=== PATIENT | female | born 1960 | race Caucasian/White ===

== ENCOUNTER 2021-03-05 07:17 | Outpatient (CLI) | payer BC ==
[2021-03-05 14:36] LABS: BASOPHILS # (AUTO) 0.1 10^3/uL (0.0-0.1); EOSINOPHILS # (AUTO) 0.4 10^3/uL (0.0-0.7); EOSINOPHILS % (AUTO) 6.6 %; HGB - HEMOGLOBIN 13.5 g/dL (12.0-16.0); LYMPHOCYTES # (AUTO) 2.6 10^3/uL (1.5-3.5); MEAN CORPUSCULAR HEMOGLOBIN 28.6 pg (27.0-31.0); MEAN CORPUSCULAR HGB CONC 31.4 g/dL (32.0-36.0); MEAN CORPUSCULAR VOLUME 91.1 fL (81.0-99.0); MEAN PLATELET VOLUME 9.7 fL (7.9-10.8); MONOCYTES # (AUTO) 0.5 10^3/uL (0.0-1.0); MONOCYTES % (AUTO) 8.1 %; NEUTROPHILS # (AUTO) 2.6 10^3/uL (1.5-6.6); PLT - PLATELET COUNT 270 10^3/uL (130-450); RED BLOOD COUNT 4.72 10^6/uL (4.20-5.40); RED CELL DISTRIBUTION WIDTH 13.5 % (12.0-15.0); WHITE BLOOD COUNT 6.2 x10^3/uL (4.8-10.8)
[2021-03-05 15:08] LABS: ALBUMIN 4.1 g/dL (3.2-5.5); ALBUMIN/GLOBULIN RATIO 1.3 (1.0-2.2); ALKALINE PHOSPHATASE 50 IU/L (42-121); ALT ALANINE AMINOTRANSFERASE 30 IU/L (10-60); AST ASPARTATE AMINOTRANSFERASE 19 IU/L (10-42); BILIRUBIN,TOTAL 0.8 mg/dL (0.2-1.0); BUN - BLOOD UREA NITROGEN 15 mg/dL (6-20); CARBON DIOXIDE - CO2 26 mmol/L (21-32); CHLORIDE 105 mmol/L (101-111); CHOLESTEROL 222 mg/dL; CREATININE 0.7 mg/dL (0.4-1.0); GFR - MDRD 85 (>89); GLUCOSE 122 mg/dL (70-100); HDL CHOLESTEROL 44 mg/dL; LDL CHOLESTEROL,CALCULATED 156 mg/dL; LDL/HDL RATIO 3.5 (<4.4); POTASSIUM 4.1 mmol/L (3.5-5.0); SODIUM 139 mmol/L (135-145); TOTAL PROTEIN 7.2 g/dL (6.7-8.2); TRIGLYCERIDES 111 mg/dL; VLDL CHOLESTEROL 22 mg/dL
[2021-03-05 15:09] LABS: THYROID STIMULATING HORMONE 1.01 uIU/mL (0.34-5.60)
[2021-03-05 21:48] LABS: ESTIMATED AVERAGE GLUCOSE 117 mg/dL (70-100); HEMOGLOBIN A1c% 5.7 % (4.27-6.07)
== END 2021-03-05 07:18 | disposition home or self-care (01) ==
LOC: LAB.S 07:17
PROVIDERS: ATTEND Family Medicine
DX: Z00.00 Encounter for general adult medical examination without abnormal findings (principal); E78.2 Mixed hyperlipidemia; I10 Essential (primary) hypertension; D68.59 Other primary thrombophilia; I74.9 Embolism and thrombosis of unspecified artery; Z79.01 Long term (current) use of anticoagulants; Z68.41 Body mass index [BMI] 40.0-44.9, adult
CPT/HCPCS: 36415; 80053; 80061; 83036; 83721; 84443; 85025; 85610

== ENCOUNTER 2021-04-05 07:32 | Outpatient (CLI) | payer BC | END 2021-04-05 07:33 | disposition home or self-care (01) | LOC: LAB.S 07:32 | PROVIDERS: ATTEND Family Medicine | DX: I74.9 Embolism and thrombosis of unspecified artery (principal); D68.59 Other primary thrombophilia; Z79.01 Long term (current) use of anticoagulants | CPT/HCPCS: 36416; 85610 ==

== ENCOUNTER 2021-04-19 07:09 | Outpatient (CLI) | payer BC | END 2021-04-19 07:10 | disposition home or self-care (01) | LOC: LAB.S 07:09 | PROVIDERS: ATTEND Family Medicine | DX: I74.9 Embolism and thrombosis of unspecified artery (principal); D68.59 Other primary thrombophilia; Z79.01 Long term (current) use of anticoagulants | CPT/HCPCS: 36416; 85610 ==

== ENCOUNTER 2021-05-03 07:13 | Outpatient (CLI) | payer BC | END 2021-05-03 07:14 | disposition home or self-care (01) | LOC: LAB.S 07:13 | PROVIDERS: ATTEND Family Medicine | DX: I74.9 Embolism and thrombosis of unspecified artery (principal); D68.59 Other primary thrombophilia; Z79.01 Long term (current) use of anticoagulants | CPT/HCPCS: 36416; 85610 ==

== ENCOUNTER 2021-05-14 07:19 | Outpatient (CLI) | payer BC | END 2021-05-14 07:20 | disposition home or self-care (01) | LOC: LAB.S 07:19 | PROVIDERS: ATTEND Family Medicine | DX: I74.9 Embolism and thrombosis of unspecified artery (principal); D68.59 Other primary thrombophilia; Z79.01 Long term (current) use of anticoagulants | CPT/HCPCS: 36416; 85610 ==

== ENCOUNTER 2021-05-28 07:11 | Outpatient (CLI) | payer BC | END 2021-05-28 07:12 | disposition home or self-care (01) | LOC: LAB.S 07:11 | PROVIDERS: ATTEND Family Medicine | DX: I74.9 Embolism and thrombosis of unspecified artery (principal); D68.59 Other primary thrombophilia; Z79.01 Long term (current) use of anticoagulants | CPT/HCPCS: 36416; 85610 ==

== ENCOUNTER 2021-06-18 07:24 | Outpatient (CLI) | payer BC | END 2021-06-18 07:25 | disposition home or self-care (01) | LOC: LAB.S 07:24 | PROVIDERS: ATTEND Family Medicine | DX: I74.9 Embolism and thrombosis of unspecified artery (principal); D68.59 Other primary thrombophilia; Z79.01 Long term (current) use of anticoagulants | CPT/HCPCS: 36416; 85610 ==

== ENCOUNTER 2021-06-30 08:16 | Outpatient (CLI) | payer BC | END 2021-06-30 08:17 | disposition home or self-care (01) | LOC: LAB.S 08:16 | PROVIDERS: ATTEND Family Medicine | DX: I74.9 Embolism and thrombosis of unspecified artery (principal); D68.59 Other primary thrombophilia; Z79.01 Long term (current) use of anticoagulants | CPT/HCPCS: 36416; 85610 ==

== ENCOUNTER 2021-07-26 07:24 | Outpatient (CLI) | payer BC | END 2021-07-26 07:25 | disposition home or self-care (01) | LOC: LAB.S 07:24 | PROVIDERS: ATTEND Family Medicine | DX: I74.9 Embolism and thrombosis of unspecified artery (principal); D68.59 Other primary thrombophilia; Z79.01 Long term (current) use of anticoagulants | CPT/HCPCS: 36416; 85610 ==

== ENCOUNTER 2021-08-30 07:13 | Outpatient (CLI) | payer BC | END 2021-08-30 07:14 | disposition home or self-care (01) | LOC: LAB.S 07:13 | PROVIDERS: ATTEND Family Medicine | DX: I74.9 Embolism and thrombosis of unspecified artery (principal); D68.59 Other primary thrombophilia; Z79.01 Long term (current) use of anticoagulants | CPT/HCPCS: 36416; 85610 ==

== ENCOUNTER 2021-10-04 08:01 | Outpatient (CLI) | payer BC | END 2021-10-04 08:02 | disposition home or self-care (01) | LOC: LAB.S 08:01 | PROVIDERS: ATTEND Family Medicine | DX: I74.9 Embolism and thrombosis of unspecified artery (principal); D68.59 Other primary thrombophilia; Z79.01 Long term (current) use of anticoagulants | CPT/HCPCS: 36416; 85610 ==

== ENCOUNTER 2021-11-15 07:26 | Outpatient (CLI) | payer BC | END 2021-11-15 07:27 | disposition home or self-care (01) | LOC: LAB.S 07:26 | PROVIDERS: ATTEND Family Medicine | DX: I74.9 Embolism and thrombosis of unspecified artery (principal); D68.59 Other primary thrombophilia; Z79.01 Long term (current) use of anticoagulants | CPT/HCPCS: 36416; 85610 ==

== ENCOUNTER 2021-12-27 07:06 | Outpatient (CLI) | payer BC | END 2021-12-27 07:07 | disposition home or self-care (01) | LOC: LAB.S 07:06 | PROVIDERS: ATTEND Family Medicine | DX: I74.9 Embolism and thrombosis of unspecified artery (principal); D68.59 Other primary thrombophilia; Z79.01 Long term (current) use of anticoagulants | CPT/HCPCS: 36416; 85610 ==

== ENCOUNTER 2022-02-11 07:11 | Outpatient (CLI) | payer BC | END 2022-02-11 07:12 | disposition home or self-care (01) | LOC: LAB.S 07:11 | PROVIDERS: ATTEND Family Medicine | DX: I74.9 Embolism and thrombosis of unspecified artery (principal); D68.59 Other primary thrombophilia; Z79.01 Long term (current) use of anticoagulants | CPT/HCPCS: 36416; 85610 ==

== ENCOUNTER 2022-05-10 07:45 | Outpatient (CLI) | payer BC | END 2022-05-10 07:46 | disposition home or self-care (01) | LOC: LAB.S 07:45 | PROVIDERS: ATTEND Family Medicine | DX: I74.9 Embolism and thrombosis of unspecified artery (principal); D68.59 Other primary thrombophilia; Z79.01 Long term (current) use of anticoagulants | CPT/HCPCS: 36416; 85610 ==

== ENCOUNTER 2022-05-30 07:32 | Outpatient (CLI) | payer BC | END 2022-05-30 07:33 | disposition home or self-care (01) | LOC: LAB.S 07:32 | PROVIDERS: ATTEND Family Medicine | DX: I74.9 Embolism and thrombosis of unspecified artery (principal); D68.59 Other primary thrombophilia; Z79.01 Long term (current) use of anticoagulants | CPT/HCPCS: 36416; 85610 ==

== ENCOUNTER 2022-07-11 07:34 | Outpatient (CLI) | payer BC | END 2022-07-11 07:35 | disposition home or self-care (01) | LOC: LAB.S 07:34 | PROVIDERS: ATTEND Family Medicine | DX: I74.9 Embolism and thrombosis of unspecified artery (principal); D68.59 Other primary thrombophilia; Z79.01 Long term (current) use of anticoagulants | CPT/HCPCS: 36416; 85610 ==

== ENCOUNTER 2022-09-05 08:09 | Outpatient (CLI) | payer BC | END 2022-09-05 08:10 | disposition home or self-care (01) | LOC: LAB 08:09 | PROVIDERS: ATTEND Family Medicine | DX: I74.9 Embolism and thrombosis of unspecified artery (principal); D68.59 Other primary thrombophilia; Z79.01 Long term (current) use of anticoagulants | CPT/HCPCS: 36416; 85610 ==

== ENCOUNTER 2022-09-26 07:36 | Outpatient (CLI) | payer BC | END 2022-09-26 07:37 | disposition home or self-care (01) | LOC: LAB.S 07:36 | PROVIDERS: ATTEND Family Medicine | DX: I74.9 Embolism and thrombosis of unspecified artery (principal); D68.59 Other primary thrombophilia; Z79.01 Long term (current) use of anticoagulants | CPT/HCPCS: 36416; 85610 ==

== ENCOUNTER 2022-11-21 09:10 | Outpatient (CLI) | payer OTHER | END 2022-11-21 09:11 | disposition home or self-care (01) | LOC: LAB.S 09:10 | PROVIDERS: ATTEND Family Medicine | DX: I74.9 Embolism and thrombosis of unspecified artery (principal); D68.59 Other primary thrombophilia; Z79.01 Long term (current) use of anticoagulants | CPT/HCPCS: 36416; 85610 ==

== ENCOUNTER 2022-11-22 08:41 | Outpatient (CLI) | payer OTHER ==
[2022-11-22 15:16] LABS: CHOL/HDL RATIO 4.5 (<4.4); CHOLESTEROL 179 mg/dL; HDL CHOLESTEROL 40 mg/dL; LDL CHOLESTEROL,CALCULATED 114 mg/dL; LDL/HDL RATIO 2.9 (<4.4); TRIGLYCERIDES 125 mg/dL; VLDL CHOLESTEROL 25 mg/dL
[2022-11-22 15:28] LABS: THYROID STIMULATING HORMONE 0.93 uIU/mL (0.34-5.60)
[2022-11-22 20:58] LABS: ESTIMATED AVERAGE GLUCOSE 111 mg/dL (70-100); HEMOGLOBIN A1c% 5.5 % (4.27-6.07)
== END 2022-11-22 08:42 | disposition home or self-care (01) ==
LOC: LAB.S 08:41
PROVIDERS: ATTEND Family Medicine
DX: E78.2 Mixed hyperlipidemia (principal); Z13.29 Encounter for screening for other suspected endocrine disorder; R73.01 Impaired fasting glucose
CPT/HCPCS: 36415; 80061; 83036; 83721; 84443

== ENCOUNTER 2022-12-01 08:31 | Outpatient (CLI) | payer OTHER | END 2022-12-01 08:32 | disposition home or self-care (01) | LOC: LAB.S 08:31 | PROVIDERS: ATTEND Family Medicine | DX: I74.9 Embolism and thrombosis of unspecified artery (principal); D68.59 Other primary thrombophilia; Z79.01 Long term (current) use of anticoagulants | CPT/HCPCS: 36416; 85610 ==

== ENCOUNTER 2022-12-29 07:17 | Outpatient (CLI) | payer OTHER | END 2022-12-29 07:18 | disposition home or self-care (01) | LOC: LAB.S 07:17 | PROVIDERS: ATTEND Family Medicine | DX: I74.9 Embolism and thrombosis of unspecified artery (principal); D68.59 Other primary thrombophilia; Z79.01 Long term (current) use of anticoagulants | CPT/HCPCS: 36416; 85610 ==

== ENCOUNTER 2023-01-26 08:00 | Outpatient (CLI) | payer OTHER | END 2023-01-26 23:59 | disposition home or self-care (01) | LOC: LAB.S 08:00 | PROVIDERS: ATTEND Family Medicine | DX: I74.9 Embolism and thrombosis of unspecified artery (principal); D68.59 Other primary thrombophilia; Z79.01 Long term (current) use of anticoagulants | CPT/HCPCS: 36416; 85610 ==

== ENCOUNTER 2023-02-06 07:50 | Outpatient (CLI) | payer OTHER | END 2023-02-06 07:51 | disposition home or self-care (01) | LOC: LAB.S 07:50 | PROVIDERS: ATTEND Family Medicine | DX: I74.9 Embolism and thrombosis of unspecified artery (principal); D68.59 Other primary thrombophilia; Z79.01 Long term (current) use of anticoagulants | CPT/HCPCS: 36416; 85610 ==

== ENCOUNTER 2023-02-20 07:54 | Outpatient (CLI) | payer OTHER ==
[2023-02-20 15:08] LABS: HCT - HEMATOCRIT 43.3 % (37.0-47.0); HGB - HEMOGLOBIN 13.6 g/dL (12.0-16.0); MEAN CORPUSCULAR HEMOGLOBIN 29.2 pg (27.0-31.0); MEAN CORPUSCULAR HGB CONC 31.4 g/dL (32.0-36.0); MEAN CORPUSCULAR VOLUME 92.9 fL (81.0-99.0); MEAN PLATELET VOLUME 10.6 fL (7.9-10.8); RED BLOOD COUNT 4.66 10^6/uL (4.20-5.40); RED CELL DISTRIBUTION WIDTH 13.6 % (12.0-15.0); WHITE BLOOD COUNT 7.5 x10^3/uL (4.8-10.8)
== END 2023-02-20 07:55 | disposition home or self-care (01) ==
LOC: LAB.S 07:54
PROVIDERS: ATTEND Family Medicine
DX: I74.9 Embolism and thrombosis of unspecified artery (principal); D68.59 Other primary thrombophilia; Z79.01 Long term (current) use of anticoagulants
CPT/HCPCS: 36415; 85027; 85610

== ENCOUNTER 2023-03-06 08:12 | Outpatient (CLI) | payer OTHER | END 2023-03-06 08:13 | disposition home or self-care (01) | LOC: LAB 08:12 | PROVIDERS: ATTEND Family Medicine | DX: I74.9 Embolism and thrombosis of unspecified artery (principal); D68.59 Other primary thrombophilia; Z79.01 Long term (current) use of anticoagulants | CPT/HCPCS: 36416; 85610 ==

== ENCOUNTER 2023-03-20 07:52 | Outpatient (CLI) | payer OTHER | END 2023-03-20 07:53 | disposition home or self-care (01) | LOC: LAB.S 07:52 | PROVIDERS: ATTEND Family Medicine | DX: I74.9 Embolism and thrombosis of unspecified artery (principal); D68.59 Other primary thrombophilia; Z79.01 Long term (current) use of anticoagulants | CPT/HCPCS: 36416; 85610 ==

== ENCOUNTER 2023-04-13 07:39 | Outpatient (CLI) | payer OTHER | END 2023-04-13 07:40 | disposition home or self-care (01) | LOC: LAB.S 07:39 | PROVIDERS: ATTEND Family Medicine | DX: I74.9 Embolism and thrombosis of unspecified artery (principal); D68.59 Other primary thrombophilia; Z79.01 Long term (current) use of anticoagulants | CPT/HCPCS: 36416; 85610 ==

== ENCOUNTER 2023-04-18 10:57 | Outpatient (CLI) | payer OTHER | END 2023-04-18 10:58 | disposition home or self-care (01) | LOC: LAB 10:57 | PROVIDERS: ATTEND Family Medicine | DX: I74.9 Embolism and thrombosis of unspecified artery (principal); Z79.01 Long term (current) use of anticoagulants; D68.59 Other primary thrombophilia | CPT/HCPCS: 36416; 85610 ==

== ENCOUNTER 2023-05-09 07:57 | Outpatient (CLI) | payer OTHER | END 2023-05-09 07:58 | disposition home or self-care (01) | LOC: LAB.S 07:57 | PROVIDERS: ATTEND Family Medicine | DX: I74.9 Embolism and thrombosis of unspecified artery (principal); D68.59 Other primary thrombophilia; Z79.01 Long term (current) use of anticoagulants | CPT/HCPCS: 36416; 85610 ==

== ENCOUNTER 2023-06-06 07:39 | Outpatient (CLI) | payer OTHER | END 2023-06-06 07:40 | disposition home or self-care (01) | LOC: LAB.S 07:39 | PROVIDERS: ATTEND Family Medicine | DX: I74.9 Embolism and thrombosis of unspecified artery (principal); D68.59 Other primary thrombophilia; Z79.01 Long term (current) use of anticoagulants | CPT/HCPCS: 36416; 85610 ==

== ENCOUNTER 2023-07-10 08:51 | Outpatient (CLI) | payer OTHER | END 2023-07-10 08:52 | disposition home or self-care (01) | LOC: LAB.S 08:51 | PROVIDERS: ATTEND Family Medicine | DX: I74.9 Embolism and thrombosis of unspecified artery (principal); D68.59 Other primary thrombophilia; Z79.01 Long term (current) use of anticoagulants | CPT/HCPCS: 36416; 85610 ==

== ENCOUNTER 2023-09-28 08:02 | Outpatient (CLI) | payer OTHER | END 2023-09-28 08:03 | disposition home or self-care (01) | LOC: LAB.S 08:02 | PROVIDERS: ATTEND Family Medicine | DX: I74.9 Embolism and thrombosis of unspecified artery (principal); D68.59 Other primary thrombophilia; Z79.01 Long term (current) use of anticoagulants | CPT/HCPCS: 36416; 85610 ==

== ENCOUNTER 2023-10-31 07:11 | Outpatient (CLI) | payer OTHER | END 2023-10-31 07:12 | disposition home or self-care (01) | LOC: LAB.S 07:11 | PROVIDERS: ATTEND Family Medicine | DX: I74.9 Embolism and thrombosis of unspecified artery (principal); D68.59 Other primary thrombophilia; Z79.01 Long term (current) use of anticoagulants | CPT/HCPCS: 36416; 85610 ==

== ENCOUNTER 2023-12-07 07:28 | Outpatient (CLI) | payer OTHER | END 2023-12-07 07:29 | disposition home or self-care (01) | LOC: LAB.S 07:28 | PROVIDERS: ATTEND Family Medicine | DX: I74.9 Embolism and thrombosis of unspecified artery (principal); D68.59 Other primary thrombophilia; Z79.01 Long term (current) use of anticoagulants | CPT/HCPCS: 36416; 85610 ==